=== PATIENT | female | born 1990 | race Caucasian/White ===

== ENCOUNTER → 2017-12-07 16:08 | Outpatient (CLI) | payer OTHER, SELFPAY ==
--- NOTE | 2017-12-07 16:13 | DI.RAD.S_ITS ---
PROCEDURE: XR THORACIC SPINE 3V INDICATIONS: CHRONIC MID BACK PAIN SINCE JUMKP INTO WATER 2 YEARS AGO TECHNIQUE: 3 views of the thoracic spine were acquired. COMPARISON: None. FINDINGS: Bones: Mild anterior wedging of the T11 vertebral body which is age-indeterminate. There is similar very minimal anterior wedging appearance of the T10 and L1 vertebral body. There are scattered small Schmorl's nodes. There is mild lateral curvature of the spine. Soft tissues: No paravertebral stripe thickening. IMPRESSION: Mild T11 physiologic wedging versus mild (age-indeterminate) compression fracture. Please correlate for point tenderness. Dictated by: Chin Guajardo M.D. on 12/07/2017 at 17:00 Approved by: Chin Guajardo M.D. on 12/07/2017 at 17:03
== END ==
PROVIDERS: Visit Provider Chiropractor
DX: M54.6 Pain in thoracic spine (principal); M48.54XA Collapsed vertebra, not elsewhere classified, thoracic region, initial encounter for fracture
CPT/HCPCS: 72072